=== PATIENT | male | born 1960 | race Caucasian/White ===

== ENCOUNTER 2017-05-10 18:45 | Inpatient (IN) | payer SELFPAY ==
[2017-05-10 19:21] LABS: #Basophils 0.1 thou/uL (0.0-0.2); #Eosinphils 0.3 thou/uL (0.0-0.7); #Lymphocytes 2.5 thou/uL (1.20-3.40); #Monocytes 0.5 thou/uL (0.11-0.59); %Basophils 0.6 % (0.0-1.0); %Eosinophils 3.4 % (0.0-10.0); %Lymphocytes 26.7 % (21.0-51.0); %Monocytes 4.9 % (0.0-10.0); Hematocrit 44.6 % (42.0-52.0); Mean Platelet Volume 7.6 fL (7.4-10.4); Red Blood Cell (RBC) Count 4.69 mill/uL (4.70-6.10); White Blood Cell (WBC) Count 9.3 thou/uL (4.8-10.8)
--- NOTE | 2017-05-10 19:37 | CT ---
CT BRAIN WITHOUT CONTRAST: Date: 05/10/17 HISTORY: Injury. Syncopal episode. COMPARISON: None available. FINDINGS: There is abnormal hypodensity within the subcortical white matter of the posterior right frontal lobe extending to the temporal lobe with faint peripheral hyperdensity. This hyperdensity does not appear to be hemorrhage. No midline shift or mass effect. Ventricular size and extra-axial CSF spaces are normal. Paranasal sinuses and mastoids are clear. IMPRESSION: Subcortical hypodensity posterior right frontal lobe and right temporal lobe with relatively maintain ed cortex. This is concerning for possible underlying mass and this may represent vasogenic edema. Fo llow-up MRI with and without contrast may be beneficial. A late acute or early subacute infarction is also a possibility. Emergency room physician noted of findings via telephone at 1925 hours. CODE CR. POS: KURT
--- NOTE | 2017-05-10 19:41 | CT ---
CERVICAL SPINE CT WITHOUT CONTRAST: Date: 05/10/17 HISTORY: Altered mental status. COMPARISON: None. FINDINGS: The occipital condyles are intact. Odontoid process is intact. Mandibular condyles are well seated wi thin the mandibular fossa. There is no acute fracture or malalignment of the cervical spine. There is moderate degenerative disc space height loss at C5-6 and C6-7. There is a moderate right C2-C5 facet arthropathy. Mild calcific plaque of the carotid bulbs bilaterally. Calcific scar left lung apex. IMPRESSION: Mild degenerative changes. No acute fracture or malalignment. POS: JENNIFER
[2017-05-10 19:44] LABS: ALT (SGPT) 37 U/L (8-55); AST (SGOT) 26 U/L (5-34); Alkaline Phosphatase 74 U/L (40-150); Anion Gap 16 mmol/L (10-20); BUN (Urea Nitrogen) 15 mg/dL (8.4-25.7); Bilirubin, Total 0.6 mg/dL (0.2-1.2); Calc. Creatinine Clearance 0 mL/min (70-130); Calcium 9.5 mg/dL (7.8-10.44); Carbon Dioxide 24 mmol/L (22-29); Chloride 105 mmol/L (98-107); Estimated GFR-MDRD 60; Globulin 2.9 g/dL (2.4-3.5); Protein, Total 7.2 g/dL (6.0-8.3)
[2017-05-10 19:47] LABS: Troponin I 0.011 ng/mL (< 0.028)
[2017-05-10] MEDS ORDERED: Acetaminophen 500 MG TAB ONE (21:26)
[2017-05-11 00:34] LABS: Troponin I 0.013 ng/mL (< 0.028)
[2017-05-11 01:47] VITALS: BMI 32.3
--- NOTE | 2017-05-11 01:52 | PDOC.EVN ---
Event Note - Event Note Event Note: [id number] 1. syncope 2. r/o seizure 3. headache plann: see orders
[2017-05-11] MEDS ORDERED: Ondansetron HCl/PF 4 MG/2 ML Vial IVP PRN (02:17)
[2017-05-11] MEDS ORDERED: Acetaminophen 325 MG TAB PO PRN (02:17)
[2017-05-11] MEDS ORDERED: Ondansetron ODT 4 MG TAB SL PRN (02:17)
[2017-05-11] MEDS ORDERED: Meclizine HCl 25 MG TAB PO PRN (02:38)
[2017-05-11] MEDS ORDERED: Metoclopramide HCl 10 MG/2 ML VIAL IVP PRN (02:44)
[2017-05-11] MEDS: Sodium Chloride 0.9% 1,000 ML IV SCH ×2 (02:58→15:29)
[2017-05-11] MEDS ORDERED: ISOVUE-370 76%-LOCM 1 ML ONE (07:56)
[2017-05-11] MEDS ORDERED: Gadobenate Dimeglumine 529 MG/1 ML (20ML VIAL) ONE (07:56)
[2017-05-11] MEDS ORDERED: Lorazepam 1 MG TAB PO SCH (08:15)
[2017-05-11] MEDS: Heparin 5,000 UNITS/ML VIAL SC SCH ×2 (08:53→21:10)
[2017-05-11] MEDS: Aspirin 81 mg Enteric Coated Tablet PO SCH (08:53)
--- NOTE | 2017-05-11 09:16 | CON ---
DATE OF CONSULTATION: 05/11/2017 HISTORY OF PRESENT ILLNESS: The patient is a 57-year-old male, otherwise healthy, who presented to the emergency department last night following a syncopal episode. The patient does not remember the event. 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 Event was not witnessed. The patient was complaining of some dizziness and nausea in the emergency department. He was evaluated with CT noncontrast of the head, which is notable for hyperdensity in the right frontal and temporal regions. Radiology felt that this could represent underlying mass with vasogenic edema or possible subacute infarction. The Neurosurgery Service was consulted for further evaluation. Patient was admitted to the medicine service and seen the patient at the bedside. At this time, he has no current complaints. He has been resting comfortably according to his family rest by evening. REVIEW OF SYSTEMS: Per HPI. PAST MEDICAL HISTORY: The patient is an otherwise healthy, denies any known medical problems. PAST SURGICAL HISTORY: No prior surgical history. SOCIAL HISTORY: The patient does not smoke, drink or use any drugs. ALLERGIES: Patient has no known drug allergies. MEDICATIONS: The patient is not taking any current medications. PHYSICAL EXAMINATION: GENERAL: No acute distress. GCS 15. HEAD: Normocephalic, atraumatic. EYES: PERRLA. Extraocular movements intact. Sclerae are white. ENT: OP is clear. Oral mucosa is pink, intact and moist. NECK: Nontender to palpation. Free active range of motion. No meningismus or nuchal rigidity. CARDIOVASCULAR: Regular rate and rhythm. LUNGS: Breathing comfortably. Symmetric chest expansion. MUSCULOSKELETAL: Good muscle tone in bilateral upper and lower extremities. Free active range of motion of all extremities, 5/5 strength throughout. NEUROLOGIC: Alert and oriented x4. No focal weakness. Normal cranial nerve exam. No limb ataxia. Negative Salazar's, negative clonus. ASSESSMENT: 1. Syncope. 2. Hyperdensity found on head CT, questionable for underlying brain mass or subacute infarction. PLAN: The patient has been admitted to the medicine service for further evaluation of syncopal episode. We will recommend MRI with and without contrast for further evaluation of possible underlying mass. We will follow up results. I have discussed this plan with Dr. Melendez. IVIS
--- NOTE | 2017-05-11 09:21 | ULT ---
ULTRASOUND WITH DOPPLER DUPLEX CAROTID: Date: 05/11/17 HISTORY: 57-year-old male with syncope. TECHNIQUE: Baldwin scale, color flow, and spectral analysis of major arteries of the neck. FINDINGS: Tiny focal plaque at origin of right internal carotid. Minimal plaque at left distal common carotid. Highest peak systolic velocities in the internal carotid arteries are 70 cm/s on the right and 85 cm/ s on the left. ICA/CCA ratios are 0.8 on the right and 0.7 on the left. Vertebral artery flow is ante grade bilaterally. IMPRESSION: 1. Minimal atherosclerotic plaque. 2. No hemodynamically significant stenosis. POS: KURT
--- NOTE | 2017-05-11 12:00 | HP ---
DATE OF ADMISSION: 05/10/2017 CHIEF COMPLAINT: Syncope. HISTORY OF PRESENT ILLNESS: The patient is a 57-year-old male with no significant past medical history, came to the ER because of the cough. 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 He does not remember what happened. Patient was found unresponsive on the floor , so patient was brought to the hospital. Patient said he did regain consciousness at the field. Once he regain consciousness he was confused, complains of some headache. Headache is mild in intensity all over. Complains of nausea, denies any vomiting. Patient thinks he did had seizure at work. Does not remember exactly what happened. Denies any chest pain. Denies any palpations. Denies any cough, denies sputum production. PAST MEDICAL HISTORY: None. PAST SURGICAL HISTORY: Tonsillectomy. SOCIAL HISTORY: Denies smoking, denies alcohol, illicit drugs. ALLERGIES: No known drug allergies. REVIEW OF SYSTEMS: Constitutional: Denies any fever, denies any chills. Eyes : Denies any vision problems. Ears: Denies any hearing loss. Neck: Denies any neck pain. Cardiovascular System: Denies any chest pain. Respiratory System: Denies any cough, denies sputum production. Gastrointestinal: Denies any nausea, denies any vomiting. Musculoskeletal: Denies any joint deformities. Integument: Denies any rashes. Genitourinary: Denies any dysuria. All other review of systems are reviewed and are negative. PHYSICAL EXAMINATION: CONSTITUTIONAL/VITAL SIGNS: At the time of H&P performed, blood pressure is 105 /60, afebrile, pulse ox 97%. GENERAL: This patient appears comfortable. HEENT: Pupils are equal, round, and anterior nares patent. Nose normal. Ears normal. Teeth intact. Tongue is moist. NECK: Supple, no JVD. CARDIOVASCULAR: S1, S2 present. Regular rate and rhythm, no murmurs, no rubs, no gallops. INTEGUMENTARY: No obvious rashes seen. CRANIAL NERVES SYSTEM: Cranial nerves intact. Follows commands. Strength intact, sensory intact. PSYCHIATRIC: Mood is appropriate at this time. LABORATORY DATA: At the time of H&P performed white count 9.3, hemoglobin 15.2 , platelet count is 259. Sodium 141, potassium 3.8, chloride 105, CO2 is 24, BUN of 15, creatinine 1.23. CT head positive for subcortical hypodensity in the right frontal and right temporal lobe seen, concerning for possible underlying mass and present vasogenic edema, cannot rule out subacute infarction. CT cervical spine, no acute fracture seen. ASSESSMENT AND PLAN: The patient is 57-year-old male: 1. Syncope, rule out seizures. Plan to check EEG. Plan to consult neurology. Plan to check MRI brain and we will follow the patient. 2. Rule out seizure. Plan to do EEG. Plan to place the patient on seizure precautions. 3. Headache. PRN pain medications. 4. Nausea. PRN antiemetics. Case was discussed in detail with the patient. Patient is FULL CODE. MTDD
--- NOTE | 2017-05-11 14:36 | PDOC.PN ---
- Subjective Encounter Start Date: 05/11/17 Encounter Start Time: 14:36 Subjective: no complaint at all - Objective MAR Reviewed: Yes Vital Signs & Weight: Vital Signs (12 hours) Temp Pulse Pulse Pulse Resp BP BP 05/11/17 11:20 98.2 F 70 18 05/11/17 10:51 67 70 111/63 122/63 05/11/17 08:45 98.5 F 69 18 05/11/17 03:17 98.6 F 72 14 BP Pulse Ox 05/11/17 11:20 122/63 95 05/11/17 10:51 05/11/17 08:45 104/63 94 L 05/11/17 03:17 107/60 97 Weight Weight 220 lb 4.8 oz I&O: 05/10/17 05/11/17 05/12/17 06:59 06:59 06:59 Intake Total 730 Output Total 1 Balance 729 Result Diagrams: 05/10/17 19:08 05/10/17 19:08 Phys Exam - Physical Examination Neck: no JVD Respiratory: clear to auscultation bilateral Cardiovascular: RRR, no significant murmur Gastrointestinal: soft, non-tender Musculoskeletal: no edema Dx/Plan (1) Syncope and collapse Code(s): R55 - SYNCOPE AND COLLAPSE Status: Acute - Plan ABn CT brain, awaiting MRI brain * .
--- NOTE | 2017-05-11 16:31 | EEG ---
Referring Physician: Celestina BENOIT EEG # [id number] TEST TYPE: ROUTINE PORTABLE INPATIENT REPORT: AN EEG USING THE INTERNATIONAL TEN-TWENTY SYSTEM OF ELECTRODE PLACEMENT WAS PERFORMED. The waking background is a well modulated 9 Hz alpha frequency. The patient became drowsy, but no sleep was seen. Photic stimulation was unremarkable. No epileptiform features were present. IMPRESSION: THIS IS A NORMAL AWAKE AND DROWSY EEG. Cad Detailer: OPAL Inventory And Pricing Associate: CHANDA.CATHY LANGSTON
--- NOTE | 2017-05-11 18:34 | PDOC.EVN ---
Event Note - Event Note Event Note: MRI dictated repeport suggests metestaic lesion more likely than primary mass lesion
--- NOTE | 2017-05-11 19:06 | MRI ---
BRAIN MRI WITH AND WITHOUT CONTRAST: Date: 05/11/17 HISTORY: Possible intracranial metastasis. Vasogenic edema reported on recent brain CT. COMPARISON: None. TECHNIQUE: Brain MRI is performed with and without intravenous Gadolinium administration. Multisequential, multi planar imaging is performed. CORRELATION: Noncontrast head CT dated 05/10/17. FINDINGS: No hemorrhage on the coronal gradient echo sequence. There is symmetric signal intensity of the hippo campi. No MR evidence of mesiotemporal sclerosis. There is T2 and FLAIR hyperintensity involving the right frontal and temporal subcortical white matte r, compatible with vasogenic edema. There is minimal associated enhancement at the level of vasogenic edema. On the anterior pole of the right temporal lobe, there is a cortically based 6.0 mm focus of enhancement. There may be a subtle area of cortical enhancement just posterior and inferior to the mo re nodular enhancement. Additional areas of parenchymal enhancement are not appreciated in the right cerebrum. No abnormal enhancement in the left cerebrum. No associated vasogenic edema in the remainde r of the cerebrum. Cerebellum is unremarkable. Central arterial flow-voids are maintained. Absent restricted diffusion. There is mucosal disease of the paranasal sinuses. Adequate mastoid air cell aeration. Metallic susceptibility artifact in the midline frontal scalp. IMPRESSION: Vasogenic edema involving the right frontotemporal lobe. Just inferior to this area of vasogenic kip a, there appears to be cortical enhancement. There is minimal enhancement of the level of vasogenic e tanisha. The distribution favors a probable metastatic, rather than primary, tumor. POS: PPP
[2017-05-11] MEDS ORDERED: Atorvastatin Calcium 40 MG TAB PO SCH (21:00)
[2017-05-11] MEDS: levETIRAcetam 500 MG TAB PO SCH (21:10)
--- NOTE | 2017-05-11 22:59 | CT ---
CT CHEST WITH CONTRAST CT ABDOMEN WITH CONTRAST CT PELVIS WITH CONTRAST 05/11/17 HISTORY: Brain metastases. COMPARISON: None. FINDINGS: There is pleural scarring along the right lower lobe with some round atelectasis. No suspicious pulmo nary nodule in the chest. No spiculated pulmonary mass. No adenopathy of the chest. Thyroid is unremarkable. No abnormal enhancing hepatic mass. Spleen is unremarkable. The liver and stomach are all unremarkable. Gallbladder is unremarkable. There is mild inflammatory within the proximal small bowel mesentery and increased number of lymph no nilay. Small retroperitoneal lymph nodes. Appendix is visualized and is normal. Mild diverticular disease sigmoid colon without active inflamma tion. Mild degenerative disease of the right hip. No suspicious osteolytic or osteoblastic lesions of the s [place]. No fracture. IMPRESSION: 1. No primary malignancy within the chest, abdomen or pelvis is appreciated. 2. No acute abnormality in the chest, abdomen or pelvis. 3. Likely chronic low grade edema of the proximal small bowel mesentery with mild increase numbe r of lymph nodes. Differential includes chronic sclerosing mesenteritis and treated lymphoma. 4. Neurosurgical consultation for brain biopsy may be necessary. POS: KURT
--- NOTE | 2017-05-11 23:14 | CON ---
DATE OF CONSULTATION: 05/11/2017 IMPRESSION: Focal seizure secondary to right frontoparietal subcortical lesion. PLAN: 1. Keppra 500 mg b.i.d. 2. MRI of the brain. 3. Possible need for neurosurgical consultation for biopsy. Mr. Sampson is a 57-year-old man with no significant past history. 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 He then started experiencing s ome twitching movements on the left side of the body. He lost consciousness for an indeterminate per iod of time. He awoke and he was on the ground underneath the trailer. He was brought to the [facility] for evaluation. He had a CT scan of the brain done yesterday which showed an area of hypointensit y involving subcortical region and the right frontoparietal region. Carotid Doppler did not show any significant stenosis. His EEG did not show any focal seizure discharges, has never had a seizure in the past. He denies a history of any type of malignancy. PAST HISTORY: Otherwise, negative. ALLERGIES: None. MEDICATIONS: None other than prior to admission. FAMILY HISTORY: Noncontributory. REVIEW OF SYSTEMS: Minimal complaints of headache, but no prior focal neurologic symptoms. PHYSICAL EXAMINATION: VITAL SIGNS: Blood pressure 124/60, pulse 72, respirations 20, temperature 98.9. HEENT: Pupils equal and reactive. Conjunctivae clear. Oropharynx clear. EXTREMITIES: No cyanosis. NEUROLOGIC: He is alert and appropriate. His speech is fluent and clear. His exam is nonfocal. No abnormal movements were seen. LABORATORY STUDIES: Unremarkable CBC and serum chemistries other than glucose 168. His total choles terol was 262. SUMMARY: This gentleman presented with a focal seizure and has a focal lesion in the right frontopar ietal region that represents either a somewhat atypical prior stroke or a subcortical mass with perip heral edema around it. I would start him on anticonvulsant therapy and proceed with further workup.
[2017-05-12 03:56] VITALS: BP 94/58
[2017-05-12 07:46] VITALS: TEMP 98.7
--- NOTE | 2017-05-12 08:21 | PDOC.PN ---
- Subjective Encounter Start Date: 05/12/17 Encounter Start Time: 08:19 - Objective MAR Reviewed: Yes Vital Signs & Weight: Vital Signs (12 hours) Temp Pulse Resp BP Pulse Ox 05/12/17 08:07 98.7 F 57 L 18 05/12/17 07:20 98.7 F 57 L 18 97 05/12/17 03:47 98.4 F 54 L 16 94/58 L 97 05/11/17 23:35 98.3 F 65 16 97/53 L 95 Weight Weight 215 lb 11.2 oz I&O: 05/11/17 05/12/17 05/13/17 06:59 06:59 06:59 Intake Total 730 950 Output Total 1 Balance 729 950 Result Diagrams: 05/10/17 19:08 05/10/17 19:08 Radiology Reviewed by me: Yes (CT thorax/ abd- no evidence for primary source of brain mass) Phys Exam - Physical Examination Constitutional: NAD Neck: no JVD Respiratory: clear to auscultation bilateral Cardiovascular: RRR, no significant murmur Gastrointestinal: soft, non-tender, positive bowel sounds Musculoskeletal: edema present Dx/Plan (1) Syncope and collapse Code(s): R55 - SYNCOPE AND COLLAPSE Status: Acute (2) Brain mass Code(s): G93.9 - DISORDER OF BRAIN, UNSPECIFIED Status: Acute (3) Seizure disorder Code(s): G40.909 - EPILEPSY, UNSP, NOT INTRACTABLE, WITHOUT STATUS EPILEPTICUS Status: Acute - Plan cont anticonvulsant tx, discuss Bx/ CAMARILLO with NS * .
[2017-05-12] MEDS: levETIRAcetam 500 MG TAB PO SCH (08:42)
[2017-05-12] MEDS: Aspirin 81 mg Enteric Coated Tablet PO SCH (08:47)
[2017-05-12] MEDS: Heparin 5,000 UNITS/ML VIAL SC SCH (08:47)
--- NOTE | 2017-05-12 09:17 | DIS ---
TRANSFER OF CARE NOTE City call admission for Stephanie. DISCHARGE DISPOSITION: Home. DATE OF ADMISSION: 05/11/2017 DATE OF DISCHARGE: 05/12/2017 FINAL DIAGNOSES: 1. Brain mass. 2. Seizure disorder. 3. Syncope and collapse. 4. Dyslipidemia. CODE STATUS: Full. PENDING AT THE TIME OF DISCHARGE: The patient will have surgery next week per Dr. Melendez. ALLERGIES: None. CONSULTATIONS: Dr. Dashawn Melendez, Neurosurgery. DISCHARGE MEDICATIONS: Keppra 500 mg p.o. b.i.d. HOSPITAL COURSE: The patient admitted to the hospital through [facility] with syncope and collapse. Neurological exam was unremarkable. CBC was unremarkable. Comp metabolic profile owed only a blood sugar of 168, cholesterol 262, LDL 187, HDL 56. PSA 0.98. The initial CAT scan owed a hyperdense right frontal temporal lobe lesion. Carotid ultrasound is unremarkable. Brain MRI showed an enhancing mass lesion right frontal temporal lobe. CT with contrast of the chest, abdomen , and pelvis was unrevealing. The patient was seen in consultation by Dr. Dashawn Melendez, consult ation with him this morning. The patient is being discharged as he has been on aspirin, to follow up with Dr. Melendez next week for excisional biopsy of mass. I have discussed with the patient no [place], no aspirin, no Motrin and Tylenol or any medications like that. Prescription for Keppra has be en written.
--- NOTE | 2017-06-15 12:32 | EKG ---
Test Reason : SYCOPE Blood Pressure : / mmHG Vent. Rate : 079 BPM Atrial Rate : 079 BPM P-R Int : 158 ms QRS Dur : 098 ms QT Int : 416 ms P-R-T Axes : 041 006 018 degrees QTc Int : 477 ms Normal sinus rhythm Normal ECG No ST elevation/AK Confirmed by MATTHEW GOODWIN ([id number]), fashion editor BRIAN ACOSTA ([id number]) on 06/15/2017 12:32:18 PM Referred By: Confirmed By:MATTHEW GOODWIN
== END 2017-05-12 11:32 | disposition home or self-care (01) | DRG 101 ==
LOC: ERS 18:45 → 2SE 23:45 → OBSVTOIN 23:45 → 2SE 05-11 20:50
PROVIDERS: ADMIT Internal Medicine; ATTEND Internal Medicine
PROC: B030ZZZ Magnetic Resonance Imaging (MRI) of Brain (ICD-10-PCS; principal; 2017-05-10)
DX: G40.909 Epilepsy, unspecified, not intractable, without status epilepticus (principal); E78.5 Hyperlipidemia, unspecified; G93.9 Disorder of brain, unspecified
CPT/HCPCS: 36415; 70450; 70553; 71260; 72125; 74177; 80053; 80061; 82553; 84153; 84484; 85025; 93005; 93306; 93880; 95816; A4216; A9579; G8978-GP-CK; G8979-GP-CK; G8980-GP-CK; G8987-GO-CH; G8988-GO-CH; G8989-GO-CH; G8996-GN-CH; G8997-GN-CH; G8998-GN-CH; J1644; J2405; J2765

== ENCOUNTER 2017-05-19 06:04 | Inpatient (IN) | payer OTHER ==
[2017-05-18 11:25] VITALS: BMI 29.5
[2017-05-19] MEDS ORDERED: Sodium Chloride 0.9% 10 ML ONE (06:24)
[2017-05-19] MEDS ORDERED: Bacitracin Zinc Ointment 30 gm TUBE ONE (06:25)
[2017-05-19] MEDS ORDERED: CEFAZOLIN/Water 2 GM/20 ML SYRINGE ONE (06:31)
[2017-05-19] MEDS ORDERED: Famotidine/PF 20 mg/2ml Vial ONE (06:59)
[2017-05-19] MEDS ORDERED: Midazolam HCl 2 mg/2 ml Vial ONE (06:59)
[2017-05-19] MEDS ORDERED: Albumin 5% 0 ML ONE (07:12)
[2017-05-19] MEDS ORDERED: Phenylephrine 10 MG/NS 250 ML 0 ML ONE (07:12)
[2017-05-19] MEDS ORDERED: Propofol 1,000 MG/100 ML VIAL IV ONE ×2 (07:12→08:57)
[2017-05-19] MEDS ORDERED: Lidocaine 2% Jelly 5 ML TUBE ONE (07:24)
[2017-05-19] MEDS ORDERED: Fentanyl 100 MCG/2 ML VIAL ONE ×3 (08:03→11:02)
[2017-05-19] MEDS ORDERED: Promethazine HCl 25 MG/ML VIAL IM PRN ×3 (10:39→17:05)
[2017-05-19] MEDS ORDERED: Promethazine HCl 25 MG/ML VIAL SLOW IVP PRN (10:39)
[2017-05-19] MEDS ORDERED: Ondansetron HCl/PF 4 MG/2 ML Vial IVP PRN ×2 (10:39→11:20)
[2017-05-19] MEDS ORDERED: hydrALAZINE 20 MG/ML VIAL SLOW IVP PRN ×2 (11:12→17:05)
[2017-05-19] MEDS ORDERED: Mag-Al 1200 mg/1200 mg/30 ML UDCUP PO PRN ×2 (11:12→17:05)
[2017-05-19] MEDS ORDERED: Labetalol HCl 100 MG/20 ML VIAL SLOW IVP PRN ×2 (11:12→17:05)
[2017-05-19] MEDS ORDERED: diphenhydrAMINE 50 MG/ML VIAL IVP PRN ×2 (11:12→17:05)
[2017-05-19] MEDS ORDERED: Docusate 100 MG CAP PO PRN ×2 (11:12→17:05)
[2017-05-19] MEDS ORDERED: Promethazine HCl 25 MG SUPP PR PRN ×2 (11:12→17:05)
[2017-05-19] MEDS ORDERED: Sodium Chloride 0.9% 1,000 ML IV SCH (11:15)
--- NOTE | 2017-05-19 11:22 | OP ---
SURGEON: Dashawn Melendez M.D. FURNITURE REPRODUCER: Frandy. PROCEDURE: Stereotactic intracranial navigation, right frontal craniotomy, resection of tumor, opera ting microscope. PROCEDURE IN DETAIL: The patient was brought into the operating room and intubated. He was position ed supine in the elma head headholder with the head turned to the left exposing the right frontotem poral region. We registered the stereotactic navigation device and used to plan the incision, cranio aline. We performed a standard right frontotemporal incision and craniotomy. We reflected the dura a nteriorly. Using the intracranial navigation, we identified an area of slightly discolored brain in the inferior right frontal lobe in the expected location of the abnormality. This did not seem to be discrete mass but rather an area of discolored brain. We circumferentially dissected this and remov ed in several specimens. We then removed additional tissue using coagulation and suction until back to normal looking brain. A complete resection of abnormal tissue was achieved. The brain was then e xtensively irrigated, and hemostasis was secured. The dura was reapproximated with 4-0 silk suture a nd Duragen artificial dura, and the skull was reapproximated with titanium microplates and screws, an d the scalp was closed in anatomic layers.
[2017-05-19] MEDS ORDERED: diphenhydrAMINE 50 MG CAP PO PRN ×2 (11:34→17:05)
[2017-05-19] MEDS ORDERED: Morphine PF 1 MG/ML SYR IVP PRN (11:37)
[2017-05-19] MEDS: Morphine 4 MG/ML VIAL SLOW IVP PRN ×2 (13:04→17:07)
[2017-05-19] MEDS ORDERED: Lidocaine 1% PF 5 ML VIAL ONE (15:05)
[2017-05-19] MEDS ORDERED: Naloxone HCl 0.4 mg/ml Vial ONE (15:05)
[2017-05-19] MEDS ORDERED: Glycopyrrolate 0.2 MG/ML 5 ML SYRINGE ONE (15:05)
[2017-05-19] MEDS ORDERED: Dexamethasone 20 MG/5 ML VIAL ONE (15:05)
[2017-05-19] MEDS ORDERED: Propofol 200 MG/20 ML VIAL ONE (15:05)
[2017-05-19] MEDS ORDERED: Ondansetron HCl/PF 4 MG/2 ML Vial ONE (15:05)
[2017-05-19] MEDS ORDERED: HYDROcodone/Acetaminophen 10/325 mg Tablet PO PRN ×2 (17:05)
[2017-05-19] MEDS ORDERED: Morphine 4 MG/ML VIAL SLOW IVP PRN ×2 (17:08→17:09)
[2017-05-19] MEDS ORDERED: Acetaminophen 650 MG Suppository PR PRN (17:13)
[2017-05-19] MEDS: Sodium Chloride 0.9% 1,000 ML IV SCH (19:22)
[2017-05-19] MEDS: Famotidine/PF 20 mg/2ml Vial SLOW IVP SCH (19:54)
[2017-05-19] MEDS: levETIRAcetam 500 MG TAB PO SCH (19:54)
[2017-05-19] MEDS ORDERED: Famotidine/PF 20 mg/2ml Vial IVPB SCH (21:00)
[2017-05-19] MEDS: CEFAZOLIN/Water 2 GM/20 ML SYRINGE SLOW IVP SCH (21:00)
[2017-05-19] MEDS ORDERED: levETIRAcetam 500 MG TAB PO SCH (21:00)
--- NOTE | 2017-05-19 22:58 | PDOC.PN ---
- Subjective Encounter Start Date: 05/19/17 Encounter Start Time: 22:56 Patient seen and examined. No new complaints. Consult for med mngt. No CP/SOB/ new focal deficits. - Objective MAR Reviewed: Yes Vital Signs & Weight: Vital Signs (12 hours) Temp Pulse Resp Pulse Ox 05/19/17 19:36 99.0 F 72 14 94 L 05/19/17 19:00 99.0 F 05/19/17 17:00 97.7 F 05/19/17 13:00 98.0 F 05/19/17 12:30 98.0 F 51 L 16 95 Weight Weight 200 lb Most Recent Monitor Data Heart Rate from ECG 83 NIBP 139/80 NIBP BP-Mean 109 Respiration from ECG 12 SpO2 93 I&O: 05/18/17 05/19/17 05/20/17 06:59 06:59 06:59 Intake Total 1037 Output Total 1290 Balance -253 EKG Reviewed by me: Yes (Tele SR) Phys Exam - Physical Examination Constitutional: NAD Respiratory: no wheezing, no rales, no rhonchi Cardiovascular: RRR, no rub Gastrointestinal: soft, non-tender, positive bowel sounds Musculoskeletal: no edema Neurological: non-focal, moves all 4 limbs Psychiatric: A&O x 3 Dx/Plan - Plan DVT proph w/SCDs IMPRESSION: 1. Seizure disorder - prob due to brain mass 2. Dyslipidemia 3. Brain mass - s/p surgery 4. CKD 2 PLAN: * Cont PO Keppra * Add PRN meds * Cont to monitor * AM labs * Seizure precautions. * Thank you for this consultation. Will follow Review of Systems - Review of Systems Constitutional: negative: Fever, Chills, Sweats, Weakness, Malaise Respiratory: negative: Cough, Dry, Shortness of Breath, Hemoptysis, SOB with Excertion, Pleuritic Pain, Sputum, Wheezing Cardiovascular: negative: Chest Pain, Palpitations, Orthopnea, Paroxysmal Noc. Dyspnea, Edema, Light Headedness Neurological: negative: Weakness, Numbness, Incoordination, Change in Speech, Confusion, Seizures - Medications/Allergies Allergies/Adverse Reactions: Allergies Allergy/AdvReac Type Severity Reaction Status Date / Time No Known Allergies Allergy Unverified 05/11/17 01:55 Medications: Current Medications Acetaminophen (Tylenol) 650 mg PO Q4H PRN PRN Reason: HEADACHE, FEVER > 101 OR PAIN Acetaminophen (Tylenol) 650 mg [place] Q4H PRN PRN Reason: Headache/Fever or Pain Hydrocodone Bitart/Acetaminophen ([place] 10/325) 1 tab PO Q4H PRN PRN Reason: Pain 4-6 Hydrocodone Bitart/Acetaminophen ([place] 10/325) 2 tab PO Q4H PRN PRN Reason: Pain 7-10 Al Hydroxide/Mg Hydroxide (Maalox) 30 ml PO Q6H PRN PRN Reason: Heartburn or Indigestion Cefazolin Sodium (Ancef) 2 gm SLOW IVP Q8HR [facility] Stop: 05/20/17 06:01 Last Admin: 05/19/17 21:00 Dose: 2 gm Diphenhydramine HCl (Benadryl) 50 mg PO HSPRN PRN PRN Reason: Itching & Insomnia Diphenhydramine HCl (Benadryl) 50 mg IVP Q6H PRN PRN Reason: Itching & Insomnia Docusate Sodium (Colace) 100 mg PO BIDPRN PRN PRN Reason: Constipation Famotidine (Pepcid) 20 mg SLOW IVP Q12HR [facility] Last Admin: 05/19/17 19:54 Dose: 20 mg Hydralazine HCl (Apresoline) 5 mg SLOW IVP Q15MIN PRN PRN Reason: FOR SBP > __160 Sodium Chloride (Normal Saline 0.9%) 1,000 mls @ 75 mls/hr IV .[id number] [facility] Last Admin: 05/19/17 19:22 Dose: Not Given Labetalol HCl (Normodyne) 10 mg SLOW IVP Q15MIN PRN PRN Reason: FOR SBP > __160 Levetiracetam (Keppra) 500 mg PO BID [facility] Last Admin: 05/19/17 19:54 Dose: 500 mg Morphine Sulfate (Morphine) 2 mg SLOW IVP Q1H PRN PRN Reason: .MODERATE BREAKTHROUGH PAIN Morphine Sulfate (Morphine) 4 mg SLOW IVP Q1H PRN PRN Reason: .MODERATE BREAKTHROUGH PAIN Promethazine HCl (Phenergan) 12.5 mg IM Q4H PRN PRN Reason: Nausea Promethazine HCl (Phenergan) 12.5 mg PO Q4H PRN PRN Reason: Nausea Last Admin: 05/19/17 21:48 Dose: 12.5 mg Promethazine HCl (Phenergan Suppository) 12.5 mg [place] Q4H PRN PRN Reason: Nausea
[2017-05-20] MEDS: Sodium Chloride 0.9% 1,000 ML IV SCH ×2 (01:44→22:48)
[2017-05-20 05:25] LABS: Anion Gap 13 mmol/L (10-20); BUN (Urea Nitrogen) 11 mg/dL (8.4-25.7); BUN/Creatinine Ratio 11.58; Calc. Creatinine Clearance 109 mL/min (70-130); Calcium 9.2 mg/dL (7.8-10.44); Carbon Dioxide 26 mmol/L (22-29); Chloride 103 mmol/L (98-107); Estimated GFR-MDRD 81; Magnesium 2.4 mg/dL (1.6-2.6); Phosphorus 2.9 mg/dL (2.3-4.7)
[2017-05-20 05:45] LABS: Band 5 % (5-11); Hematocrit 48.9 % (42.0-52.0); Mean Platelet Volume 8.2 fL (7.4-10.4); Neutrophil 82 % (42-75); Red Blood Cell (RBC) Count 5.13 mill/uL (4.70-6.10); White Blood Cell (WBC) Count 23.2 thou/uL (4.8-10.8)
[2017-05-20] MEDS: CEFAZOLIN/Water 2 GM/20 ML SYRINGE SLOW IVP SCH (05:59)
[2017-05-20] MEDS: Acetaminophen 325 MG TAB PO PRN ×2 (07:45→20:59)
[2017-05-20] MEDS: Famotidine/PF 20 mg/2ml Vial SLOW IVP SCH ×2 (07:45→20:38)
[2017-05-20] MEDS: levETIRAcetam 500 MG TAB PO SCH ×2 (07:46→20:38)
--- NOTE | 2017-05-20 17:47 | PDOC.PN ---
- Subjective Encounter Start Date: 05/20/17 Encounter Start Time: 09:00 Patient seen and examined. No new complaints. No overnight events - Objective MAR Reviewed: Yes Vital Signs & Weight: Vital Signs (12 hours) Temp Pulse Resp BP Pulse Ox 05/20/17 16:05 98.0 F 62 16 129/74 96 05/20/17 11:55 97.7 F 62 12 119/70 94 L 05/20/17 09:16 98.0 F 62 20 117/74 94 L 05/20/17 08:00 98.3 F 88 18 96 05/20/17 07:00 98.3 F Weight Weight 200 lb Most Recent Monitor Data Heart Rate from ECG 65 NIBP 105/50 NIBP BP-Mean 69 Respiration from ECG 17 SpO2 94 I&O: 05/19/17 05/20/17 05/21/17 06:59 06:59 06:59 Intake Total 2042 360 Output Total 3010 40 Balance -968 320 Result Diagrams: 05/20/17 04:00 05/20/17 04:00 Phys Exam - Physical Examination Constitutional: NAD Respiratory: no wheezing, no rhonchi Cardiovascular: RRR, no rub Gastrointestinal: soft, non-tender, positive bowel sounds Musculoskeletal: no edema Neurological: non-focal, moves all 4 limbs Psychiatric: A&O x 3 Dx/Plan - Plan DVT proph w/SCDs IMPRESSION: 1. Seizure disorder - prob due to brain mass - on Keppra 2. Dyslipidemia - counselled on dietary modification 3. Brain mass - s/p surgery 05/19 4. CKD 2 PLAN: * Cont PO Keppra * Cont to monitor * Seizure precautions. Review of Systems - Review of Systems Respiratory: negative: Cough, Dry, Shortness of Breath, Hemoptysis, SOB with Excertion, Pleuritic Pain, Sputum, Wheezing Cardiovascular: negative: Chest Pain, Palpitations, Orthopnea, Paroxysmal Noc. Dyspnea, Edema, Light Headedness Gastrointestinal: negative: Nausea, Vomiting, Abdominal Pain, Diarrhea, Constipation, Melena, Hematochezia - Medications/Allergies Allergies/Adverse Reactions: Allergies Allergy/AdvReac Type Severity Reaction Status Date / Time No Known Allergies Allergy Unverified 05/11/17 01:55 Medications: Current Medications Acetaminophen (Tylenol) 650 mg PO Q4H PRN PRN Reason: HEADACHE, FEVER > 101 OR PAIN Last Admin: 05/20/17 07:45 Dose: 650 mg Acetaminophen (Tylenol) 650 mg [place] Q4H PRN PRN Reason: Headache/Fever or Pain Hydrocodone Bitart/Acetaminophen ([place] 10/325) 1 tab PO Q4H PRN PRN Reason: Pain 4-6 Hydrocodone Bitart/Acetaminophen ([place] 10/325) 2 tab PO Q4H PRN PRN Reason: Pain 7-10 Al Hydroxide/Mg Hydroxide (Maalox) 30 ml PO Q6H PRN PRN Reason: Heartburn or Indigestion Diphenhydramine HCl (Benadryl) 50 mg PO HSPRN PRN PRN Reason: Itching & Insomnia Diphenhydramine HCl (Benadryl) 50 mg IVP Q6H PRN PRN Reason: Itching & Insomnia Docusate Sodium (Colace) 100 mg PO BIDPRN PRN PRN Reason: Constipation Famotidine (Pepcid) 20 mg SLOW IVP Q12HR [facility] Last Admin: 05/20/17 07:45 Dose: 20 mg Hydralazine HCl (Apresoline) 5 mg SLOW IVP Q15MIN PRN PRN Reason: FOR SBP > __160 Sodium Chloride (Normal Saline 0.9%) 1,000 mls @ 75 mls/hr IV .[id number] [facility] Last Admin: 05/20/17 01:44 Dose: 1,000 mls Labetalol HCl (Normodyne) 10 mg SLOW IVP Q15MIN PRN PRN Reason: FOR SBP > __160 Levetiracetam (Keppra) 500 mg PO BID [facility] Last Admin: 05/20/17 07:46 Dose: 500 mg Morphine Sulfate (Morphine) 2 mg SLOW IVP Q1H PRN PRN Reason: .MODERATE BREAKTHROUGH PAIN Morphine Sulfate (Morphine) 4 mg SLOW IVP Q1H PRN PRN Reason: .MODERATE BREAKTHROUGH PAIN Promethazine HCl (Phenergan) 12.5 mg IM Q4H PRN PRN Reason: Nausea Promethazine HCl (Phenergan) 12.5 mg PO Q4H PRN PRN Reason: Nausea Last Admin: 05/20/17 06:05 Dose: 12.5 mg Promethazine HCl (Phenergan Suppository) 12.5 mg [place] Q4H PRN PRN Reason: Nausea
[2017-05-21 07:42] VITALS: BP 121/80; TEMP 98.3
[2017-05-21] MEDS: Famotidine/PF 20 mg/2ml Vial SLOW IVP SCH (08:33)
[2017-05-21] MEDS: levETIRAcetam 500 MG TAB PO SCH (08:37)
--- NOTE | 2017-05-21 11:40 | DIS ---
The patient is a 57-year-old male who underwent right craniotomy for brain tumor. He is po stoperative day #2. There were no intraoperative complications. He has been doing well postoperativ martha with no complaints. The patient's pain is well controlled with regular Tylenol just on an as nee ded basis. He has been ambulatory throughout the department, was neurologically intact with no focal deficits. His incision was closed with marcelina. It is intact and dry. No drainage is appreciated. The patient is tolerating his diet well. He has been voiding appropriately. We will plan to dismi ss to home. The patient is to continue Keppra 500 mg b.i.d. daily. We will plan to follow up in 2 w eeks in the office. Specimen pathology is pending. I will follow the results. Please reach out to the Neurosurgery Service for additional questions or concerns.
== END 2017-05-21 10:27 | disposition home or self-care (01) | DRG 26 ==
LOC: SURG A 06:04 → CCU 12:41 → SURG A 05-20 08:50
PROVIDERS: ADMIT Neurological Surgery; ATTEND Neurological Surgery
PROC: 00B70ZZ Excision of Cerebral Hemisphere, Open Approach (ICD-10-PCS; principal; 2017-05-19)
DX: G93.9 Disorder of brain, unspecified (principal); C71.1 Malignant neoplasm of frontal lobe; E78.5 Hyperlipidemia, unspecified; G40.909 Epilepsy, unspecified, not intractable, without status epilepticus; N18.2 Chronic kidney disease, stage 2 (mild)
CPT/HCPCS: 36415; 80069; 83735; 85025; 88307; 88325; 88341; 88342; A4216; C1713; G8978-GP-CK; G8979-GP-CK; G8980-GP-CK; G8987-GO-CI; G8988-GO-CI; G8989-GO-CI; J0131; J0360; J1100; J1642; J2001; J2250; J2270; J2310; J2405; J2704; J3010; J3490; P9045; S0028

== ENCOUNTER 2017-08-27 09:31 | Emergency (ER) | payer OTHER, SELFPAY ==
[2017-08-27 10:49] LABS: #Eosinphils 0.1 thou/uL (0.0-0.7); #Lymphocytes 0.6 thou/uL (1.20-3.40); #Monocytes 0.3 thou/uL (0.11-0.59); #Neutrophils 3.1 thou/uL (1.40-6.50); %Basophils 0.3 % (0.0-1.0); %Eosinophils 3.4 % (0.0-10.0); %Neutrophils 73.2 % (42.0-75.0); Hemoglobin 15.3 g/dL (14.0-18.0); Mean Corpuscular HGB CONC 33.9 g/dL (32.0-36.0); Mean Corpuscular Hemoglobin 32.5 pg (27.0-31.0); Mean Corpuscular Volume 95.8 fl (80.0-94.0); Mean Platelet Volume 7.4 fL (7.4-10.4); Platelet Count 194 thou/uL (130-400); RBC Distribution Width 12.1 % (11.5-14.5); White Blood Cell (WBC) Count 4.2 thou/uL (4.8-10.8)
[2017-08-27] MEDS ORDERED: Valproate Sodium 500 MG in Sodium Chloride 0.9% 100 ML IVPB SCH (11:00)
[2017-08-27 11:01] LABS: ALT (SGPT) 37 U/L (8-55); AST (SGOT) 27 U/L (5-34); Albumin 4.3 g/dL (3.5-5.0); Alkaline Phosphatase 69 U/L (40-150); Anion Gap 11 mmol/L (10-20); BUN (Urea Nitrogen) 12 mg/dL (8.4-25.7); Bilirubin, Total 0.7 mg/dL (0.2-1.2); Calc. Creatinine Clearance 115 mL/min (70-130); Calcium 9.1 mg/dL (7.8-10.44); Carbon Dioxide 24 mmol/L (22-29); Chloride 109 mmol/L (98-107); Estimated GFR-MDRD 80; Globulin 2.9 g/dL (2.4-3.5); Glucose 93 mg/dL (70-105); Potassium 4.2 mmol/L (3.5-5.1); Protein, Total 7.2 g/dL (6.0-8.3); Sodium 140 mmol/L (136-145)
--- NOTE | 2017-08-27 11:32 | CT ---
CT HEAD WITHOUT CONTRAST: HISTORY: History of brain tumor. Seizures. COMPARISON: MRI brain with and without contrast, dated 05/11/2017. TECHNIQUE: Multiple axial tomograms obtained through the head without IV enhancement. FINDINGS: The comparison exam revealed vasogenic edema in the right frontal lobe cortex, peripherally, with an enhancing nodule at this site on post contrast study. On today's exam, there are postoperative changes involving the right frontal lobe, at the site of the previously noted enhancing mass. A craniotomy defect is seen. There is thickening of the dura at t his site, which is probably postoperative. There is no evidence of intracranial hemorrhage. There is some lucency at the operative site, consis tent with postoperative change. There is no evidence of edema by CT. IMPRESSION: No acute finding by CT. Postoperative changes are noted. MRI with and without contrast would be mor e sensitive for assessing recurrent neoplasm. POS: [facility]
== END 2017-08-27 12:29 | disposition home or self-care (01) ==
LOC: ERS 09:31
DX: R56.9 Unspecified convulsions (principal); Z85.841 Personal history of malignant neoplasm of brain; Z79.899 Other long term (current) drug therapy
CPT/HCPCS: 70450; 80053; 85025; 96365; J7050

== ENCOUNTER 2017-10-19 10:32 | Inpatient (IN) | payer SELFPAY ==
[2017-10-19 11:03] LABS: #Eosinphils 0.1 thou/uL (0.0-0.7); #Lymphocytes 1.1 thou/uL (1.20-3.40); #Monocytes 0.4 thou/uL (0.11-0.59); #Neutrophils 4.1 thou/uL (1.40-6.50); %Basophils 0.3 % (0.0-1.0); %Eosinophils 1.8 % (0.0-10.0); %Lymphocytes 19.4 % (21.0-51.0); %Monocytes 6.9 % (0.0-10.0); %Neutrophils 71.5 % (42.0-75.0); Hemoglobin 15.8 g/dL (14.0-18.0); Mean Corpuscular HGB CONC 34.5 g/dL (32.0-36.0); Mean Corpuscular Hemoglobin 32.5 pg (27.0-31.0); Mean Corpuscular Volume 94.4 fl (80.0-94.0); Mean Platelet Volume 7.4 fL (7.4-10.4); Platelet Count 208 thou/uL (130-400); RBC Distribution Width 11.4 % (11.5-14.5); Red Blood Cell (RBC) Count 4.87 mill/uL (4.70-6.10); White Blood Cell (WBC) Count 5.8 thou/uL (4.8-10.8)
[2017-10-19 11:09] LABS: Bicarbonate (HCO3v) 30.1 mmol/L (1.0-85.0); CO2 Tension (PvCO2) 54.1 mmHg (41.0-51.0); Calcium, Ionized 1.17 mmol/L (1.12-1.32); Hemoglobin - Calc 16.5 g/dL (12.0-18.0); Lactate 1.65 mmol/L (0.50-2.20); O2 Tension (PvO2) 30.6 mmHg (35.0-45.0); Potassium 4.1 mmol/L (3.4-4.7); T. Carbon Dioxide 31.8 mmol/L (1.0-85.0); pH (Venous) 7.354 (7.35-7.45); vO2 Saturation-calc 54.3 % (94-98)
[2017-10-19 11:09] LABS: PTT 30.3 SEC (22.9-36.1); Prothrombin Time 13.3 SEC (12.0-14.7)
[2017-10-19 11:14] LABS: ALT (SGPT) 31 U/L (8-55); AST (SGOT) 24 U/L (5-34); Albumin 4.3 g/dL (3.5-5.0); Alkaline Phosphatase 73 U/L (40-150); Anion Gap 13 mmol/L (10-20); BUN (Urea Nitrogen) 15 mg/dL (8.4-25.7); Bilirubin, Total 0.7 mg/dL (0.2-1.2); Calc. Creatinine Clearance 0 mL/min (70-130); Calcium 9.3 mg/dL (7.8-10.44); Carbon Dioxide 25 mmol/L (22-29); Chloride 105 mmol/L (98-107); Estimated GFR-MDRD 71; Globulin 3.1 g/dL (2.4-3.5); Glucose 102 mg/dL (70-105); Potassium 4.2 mmol/L (3.5-5.1); Protein, Total 7.4 g/dL (6.0-8.3); Sodium 139 mmol/L (136-145)
[2017-10-19 11:18] LABS: CKMB 0.4 ng/mL (0-6.6); Troponin I Less than 0.010 ng/mL (< 0.028)
[2017-10-19] MEDS ORDERED: Dexamethasone 10 MG/ML VIAL ONE (11:23)
--- NOTE | 2017-10-19 11:33 | CT ---
CT OF THE BRAIN WITHOUT CONTRAST: COMPARISON: 08/27/17. HISTORY: History of cancer. The patient has a history of left-sided arm drifting and facial drooping. FINDINGS: There is a hypodense region in the right frontal and parietal lobes. This likely represents vasogeni c edema surrounding a mass which is difficult to visualize but likely measures 3.8 cm in size. There is no evidence of hydrocephalus, intracranial hemorrhage, or extraaxial fluid collection. Postsurgical changes are seen in the right calvarium. The paranasal sinuses and mastoid air cells ar e well aerated. IMPRESSION: There is a new hypodense region in the right frontal lobe which likely represents a mass with surroun ding vasogenic edema rather than an acute stroke. An MRI of the brain without and with contrast is r ecommended for further evaluation. Dr. Chawla notified of the findings at 10:49 p.m. on 10/19/17. CODE CR POS: [facility]
--- NOTE | 2017-10-19 12:53 | CON ---
DATE OF CONSULTATION: 10/19/2017 ATTENDING PHYSICIAN: Dr. Dashawn Melendez. HISTORY OF PRESENT ILLNESS: The patient is a 57-year-old male known to us for right-sided craniotomy with tumor resection in 05/2017 who presents to the emergency department for left-sided fa cial droop, left upper extremity weakness and slurred speech. Following his surgery back in May , pathology returned as astrocytoma. The patient was following with Oncology and receiving radiation as well as chemotherapy until this August. The patient reports he took a brief break from chemothera py after a dental infection and had plan to restart chemotherapy in the near future. He was seen by us 08/[address] head which did not show any recurrence at that time. He was doing well until when he reports that he began having acute onset slurred speech, left upper extremity weaknes s as well, plus left-sided facial droop. This prompted his visit to the ER today. In addition, the patient reports he has had 3 seizures in the last 24 hours. He is currently taking Keppra 500 mg b.i .d., is managed by his neurologist, Dr. Mock. He reports he has had intermittent seizures since . His CT shows a likely recurrence of underlying lesion in the right frontal temporal region with surrounding vasogenic edema. There was some mass effect. No midline shift is appreciated at th is time. PAST MEDICAL HISTORY: Astrocytoma status post right craniotomy, currently undergoing chemotherapy an d radiation treatment; seizures. PAST SURGICAL HISTORY: Tonsillectomy, right craniotomy 05/2017. SOCIAL HISTORY: The patient does not smoke, drink or use any drugs. ALLERGIES: Patient has no known drug allergies. REVIEW OF SYSTEMS: Per HPI. PHYSICAL EXAMINATION: CONSTITUTIONAL: The patient is awake, alert, no acute distress. HEAD: There is a left-sided facial droop is appreciated. EYES Pupils equal and reactive to light. Extraocular movements intact. ENT: Oral mucosa is pink, intact and moist. He has a thick speech. NECK: Nontender to palpation. Free active range of motion, no meningismus or nuchal rigidity. CARDIOVASCULAR: Regular rate and rhythm. LUNGS: The patient is breathing comfortably. Symmetric chest expansion. No evidence of dyspnea. MUSCULOSKELETAL: Good muscle tone bilateral upper and lower extremities. There is slight weakness i n the left upper extremity corrections officer. There is no drift appreciated. No weakness in the other extremitie s. NEUROLOGIC: Left side facial droop, thick speech, left upper extremity weakness. ASSESSMENT AND PLAN: This is a 57-year-old male known to us for astrocytoma with previous craniotomy in 05/2017, currently undergoing chemotherapy and radiation, although he is on a brief break with ch emotherapy at this time seems healing from dental surgery. He has new onset left-sided weakness and facial droop and speech changes with a CT which shows a concern for recurrence of lesion in the right frontotemporal region. He has been given 10 mg IV Decadron in the emergency department and we will continue this for q.6 hours. I have also added an H2 nany. We will plan to get further evaluatio n of this lesion with an MRI of the brain with and without contrast. I discuss this plan with Dr. Fr almaguer who is in agreement. The patient will be admitted primarily to the medicine service and we wi ll continue to assess regarding this lesion in any other way.
--- NOTE | 2017-10-19 13:00 | MRI ---
BRAIN MRI WITH AND WITHOUT CONTRAST: HISTORY: Left-sided weakness, that started 2 or 3 days ago. History of brain tumor with resection. COMPARISON: 05/11/17. TECHNIQUE: Brain MRI is performed with and without intravenous Gadolinium administration. Multisequential, mult iplanar imaging is performed. FINDINGS: No acute hemorrhage on the axial gradient echo sequence. There is sulcal effacement and mass effect upon the right frontal and temporal lobes. There is mass effect and compression of the right lateral ventricle. No significant midline shift. There is T2 and FLAIR hyperintensity. No restricted diff usion. On the postcontrast images, there is an easily enhancing focus measuring 4.0 cm mediolateral x 5.2 cm anterior posterior x 4.5 cm craniocaudal. Additional areas of nodular enhancement are noted , peripheral to the aforementioned region. There is also enhancement of the overlying dura. Dural e nhancement may be due to treatment. There is evidence of likely chronic subdural blood along the rig ht frontal and temporal convexities at the level of previous craniotomy defect. No abnormal enhancem ent in the left cerebrum or cerebellum. Comparison made with prior imaging demonstrates the large lesion of enhancement to have developed sin ce the prior examination. Previously, there was a focus of enhancement along the right temporal pole . There is evidence of paranasal sinus mucosal thickening. IMPRESSION: Extensive heterogeneous enhancement involving the right frontotemporal region compatible with a tumor recurrence. Small satellite lesions appear to be present. There is associated mass effect and sulc al effacement. No significant midline shift. POS: [facility]
[2017-10-19] MEDS ORDERED: HYDROcodone/Acetaminophen 10/325 mg Tablet PO PRN (13:18)
[2017-10-19] MEDS ORDERED: Chloraseptic Spray 180 ml Bottle PO PRN (13:18)
[2017-10-19] MEDS ORDERED: Loperamide HCl 2 MG CAP PO PRN (13:18)
[2017-10-19] MEDS ORDERED: Milk Of Magnesia 30 ML UDCUP PO PRN (13:18)
[2017-10-19] MEDS ORDERED: Acetaminophen 325 MG TAB PO PRN (13:18)
[2017-10-19] MEDS ORDERED: Loratadine 10 MG TAB PO PRN (13:18)
[2017-10-19] MEDS ORDERED: Sodium Chloride 0.65% Nasal 44 ML BOT EA NARE PRN (13:18)
[2017-10-19] MEDS ORDERED: Mag-Al 1200 mg/1200 mg/30 ML UDCUP PO PRN (13:18)
[2017-10-19] MEDS ORDERED: Bisacodyl 10 MG SUPP PR PRN (13:18)
[2017-10-19] MEDS ORDERED: Diabetic Tussin 200 MG/10 ML UDCUP PO PRN (13:18)
[2017-10-19] MEDS ORDERED: Senokot 8.6 MG TAB PO PRN (13:18)
[2017-10-19] MEDS ORDERED: Ondansetron ODT 4 MG TAB PO PRN (13:18)
[2017-10-19] MEDS ORDERED: Artificial Tears 18 DROP/0.9 ML EA EYE PRN (13:18)
[2017-10-19] MEDS ORDERED: hydrALAZINE 20 MG/ML VIAL SLOW IVP PRN (13:18)
[2017-10-19] MEDS ORDERED: Eucerin (Mineral Oil/Petrolatum,White) 30 gm Jar TOP PRN (13:18)
[2017-10-19] MEDS ORDERED: Ondansetron HCl/PF 4 MG/2 ML Vial IVP PRN (13:18)
[2017-10-19] MEDS ORDERED: Zolpidem Tartrate 5 MG TAB PO PRN (13:18)
--- NOTE | 2017-10-19 13:35 | HP ---
PRIMARY CARE PHYSICIAN: [facility] call admission. REASON FOR ADMISSION: Left upper extremity weakness and slurred speech (stroke- like symptoms. HISTORY OF PRESENT ILLNESS: A 57-year-old male who has a previous history of astrocytoma required right-sided craniotomy who presented to emergency room with left upper extremity weakness and slurred speech. This patient had tumor resection with a right-sided craniotomy and subsequently pathology report was consistent with astrocytoma. The patient was receiving radiation and chemotherapy up until this August. The patient had a chemotherapy break for his recent dental infection and there was plan to restart chemotherapy in the near future. The patient saw neurosurgeon back in August 2016. At that time, there was no recurrence. The patient's symptoms started yesterday with slurred speech and left upper extremity weakness. He is right handed, but he was not able to hold anything on the left upper extremity and he also had a seizure- type of activity at home. The patient had previously seizure and he was kept on Keppra, which he was taking regularly and followed by Dr. Franco Mock. He denies any headache. He denies any nausea or vomiting. He denies any motor weakness in the lower extremity. He denies any diplopia or blurred vision. He denies any fever, chills, UTI symptoms. He denies any constipation, diarrhea, abdominal pain. REVIEW OF SYSTEMS: The following complete review of systems was negative, unless otherwise mentioned in the HPI or below: Constitutional: Weight loss or gain, ability to conduct usual activities. Skin: Rash, itching. Eyes: Double vision, pain. ENT/Mouth: Nose bleeding, neck stiffness, pain, tenderness. Cardiovascular: Palpitations, dyspnea on exertion, orthopnea. Respiratory: Shortness of breath, wheezing, cough, hemoptysis, fever or night sweats. Gastrointestinal: Poor appetite, abdominal pain, heartburn, nausea, vomiting, constipation, or diarrhea. Genitourinary: Urgency, frequency, dysuria, nocturia. Musculoskeletal: Pain, swelling. Neurologic/Psychiatric: Anxiety, depression. Allergy/Immunologic: Skin rash, bleeding tendency. Please see my HPI for pertinent positive and negative. All other review of systems reviewed and negative except as mentioned in the HPI. PAST MEDICAL HISTORY: History of astrocytoma required a craniotomy. Subsequently, the patient received chemotherapy and radiation therapy, seizure disorder secondary to astrocytoma. PAST SURGICAL HISTORY: Tonsillectomy, right craniotomy in 05/2017. PAST PSYCHIATRIC HISTORY: Reviewed and negative. SOCIAL HISTORY: Patient is single. He has one daughter. 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 He denies any tobacco, alcohol or illicit drug abuse. ALLERGIES: No known drug allergy. FAMILY HISTORY: No strong family history of premature coronary artery disease, stroke or cancer. CURRENT HOME MEDICATIONS: Keppra 500 mg p.o. b.i.d. EMERGENCY COURSE: patient is given decadron 10 mg one time PHYSICAL EXAMINATION: VITAL SIGNS: Currently, blood pressure 133/84, pulse 61, respiratory rate 18, temperature 97.5, saturation 95% on room air, weight 90.7 kilograms. GENERAL: The patient is currently alert, awake, no obvious acute distress. HEENT: Head; normocephalic, atraumatic. Eyes; pupils round, reactive to light. Extraocular muscle intact. ENT: Oropharynx within normal limits. Moist mucous membranes, no oral lesion, no pharyngeal erythema, no exudate. NECK: Supple, no JVD, no thyromegaly, no carotid bruit, no jugular venous distention. LUNGS: Clear to auscultation without any rhonchi or rales. CARDIAC: S1, S2 regular. No murmur, no gallop, no rub. ABDOMEN: Soft, bowel sounds present, nontender, nondistended. No organomegaly , no mass, no suprapubic tenderness. BACK: Unremarkable, no CVA tenderness. EXTREMITIES: Upper extremity passive movement of all joints are normal. Lower extremities: No edema. Good peripheral pulsation. SKIN: No skin rash. HEMATOLOGIC: No lymphadenopathy. PSYCHIATRIC: Normal affect. NEUROLOGIC: Patient does have slurred speech. Patient does have left upper extremity weakness. Patient does have pronator drip in left upper extremity. Lower extremity within normal limits. Reflexes bilaterally symmetrical. No cerebellar sign. Plantar bilateral flexor. PSYCHIATRIC: Normal affect. HEMATOLOGIC: No lymphadenopathy. SIGNIFICANT LABS: CT brain showing new mets with vasogenic edema on the right side, compression on the third ventricle 1 mm deviation to the right. MRI brain showed new hypodense region in the right frontal lobe. MRI brain showing extensive heterogenous enhancement involving the right frontotemporal region compatible with tumor recurrence associated mass effect, no midline shift on the MRI. CBC: WBC 5.8, hemoglobin 15.8, platelet 208. INR 1.08. VBG; pH 7.35, CO2 54.1, O2 30.6, bicarbonate 30.1. BMP: Sodium 144, potassium 4.1, chloride 105 , carbon dioxide 25, BUN 15, creatinine 1.07, glucose 102, calcium 9.3. LFTs: AST 24, ALT 31, alkaline phosphatase 73, albumin 4.3. Cardiac enzymes negative. ASSESSMENT AND PLAN: 1. Slurred speech and left upper extremity weakness, likely related with a tumor recurrence. This patient has previous history of astrocytoma that required craniotomy and subsequently he had chemoradiation therapy. At this point, CT brain and MRI brain report consistent with tumor recurrence. Neurosurgery already evaluated this patient in the emergency room. We will continue with the Decadron 10 mg IV 1 time dose and then every 6 hours for vasogenic edema. We will also continue Keppra 500 mg p.o. b.i.d. We will consult Neurosurgery and further plan will defer to them. Oncology team will be consulted as well. 2. Seizure disorder. This patient had a seizure problem today. We will continue Keppra 500 mg p.o. b.i.d. Seizure precaution will be exhibited while in hospital. 3. Deep venous thrombosis prophylaxis. Only sequential compression device boots, no Lovenox because of a brain mass recurrence as well as he may need a brain surgery. 4. Gastrointestinal prophylaxis, Pepcid 20 mg p.o. b.i.d. 5. Code status: The patient is FULL CODE. The patient is making his decision by himself, but the patient's daughter is also surrogate decision maker. Disposition plan based on clinical course and Neurosurgery recommendation. Plan of care discussed with the patient in detail. MTDD
[2017-10-19] MEDS ORDERED: Gadobenate Dimeglumine 529 MG/1 ML (20ML VIAL) ONE (15:06)
[2017-10-19] MEDS: Dexamethasone 4 mg/ml Vial SLOW IVP SCH ×3 (16:30→23:48)
--- NOTE | 2017-10-19 18:07 | CON ---
DATE OF CONSULTATION: 10/19/2017 CONSULTATION AND HISTORY AND PHYSICAL REASON FOR CONSULTATION: Mr. Sampson is a 57-year-old gentleman known to me who has possible recurren ce of his brain tumor in the right temporal area. HISTORY OF PRESENT ILLNESS: Mr. Sampson is known to me. 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 This was IDH1 and IDH2 negative. He was treated with chemoradiotherapy with his radiation completed on 08/13/2017. He tolerated this chemora diotherapy well. He was to resume maintenance Temodar. A little more than a week ago, he had some t eeth extracted and therefore his maintenance Temodar was delayed. He does have a history of seizures from his brain tumor. Beginning yesterday and worse this morning, he experienced a seizure episode. This was associated with jaw numbness and jaw shaking. He also had weakness in his left upper extr emity. He was brought to the emergency room for workup and evaluation. He did have an MRI of the br ain, which showed an enhancing focus measuring 4.0 x 5.2 x 4.5 cm. There is also a concern for some possible satellite lesions. There was surrounding vasogenic edema. His seizures have been controlle d and he has been initiated on Decadron. I am seeing him today to discuss his options for treatment. He denies any headaches at the present time. A week or two ago, he was doing well and feeling well. He has no nausea or vomiting. He voices no other complaints. PAST MEDICAL HISTORY: 1. Anaplastic astrocytoma as mentioned above. 2. Status post tonsillectomy. MEDICATIONS: Keppra and dexamethasone. ALLERGIES: No known medical allergies. SOCIAL HISTORY: He previously smoked cigarettes including at times up to 3 packs per day. He has no t used cigarettes or tobacco products in 2002. He did previously drink on a daily basis. 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 He lives in [place], [place] by himself. His daughter is with him in the room today. FAMILY HISTORY: His mother is still living at age 74 with diabetes. His father in his early 50 s from cirrhosis. There is no other family history of malignancy. REVIEW OF SYSTEMS: Twelve system review of systems is otherwise negative. PHYSICAL EXAMINATION: VITAL SIGNS: His height is 5 feet 9 inches, his weight is 211 pounds. Blood pressure is 133/84, pul se 61, respirations are 18, temperature is 97.5, O2 saturation was 95%. CONSTITUTIONAL: He is alert and oriented and in no apparent distress. His speech is slightly slurre d. Karnofsky performance status is an 80%. EYES: Pupils equal, round and reactive to light. Extraocular movements are intact. ENT: Oral cavity and oropharynx normal without lesion or erythema. Palate elevates symmetrically. Gingiva is intact. NECK: Supple without cervical or supraclavicular adenopathy. No thyromegaly. Larynx midline. LUNGS: Breathing nonlabored. Clear to auscultation and percussion. HEART: Regular rate and rhythm without murmur. No lower extremity edema. BACK: No tenderness on fist percussion of his spine. LYMPHATIC: No axillary or inguinal adenopathy. ABDOMEN: Soft, nontender, nondistended without mass or hepatosplenomegaly. Liver percussed to margarito l size. Bowel sounds present. NEUROLOGIC: Cranial nerves II-XII grossly intact. Motor strength is 5/5 in right upper extremity an d both lower extremities in all muscle groups tested. 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 Reflexes are diminished, but symmetrical. RADIOLOGIC: MRI of the brain was personally reviewed. Again, this shows a contrast enhancing lesion in the right temporal lobe measuring at least 5.2 cm. There are possible satellite lesions just adj acent to this. There was surrounding vasogenic edema. No other lesion was identified. CT scan of t he head on 08/27/2017 showed only postoperative changes. LABORATORY DATA: CBC revealed a white blood cell count of 5800 with a hemoglobin of 15.8, hematocrit of 46.0, platelet count of 208,000. Chemistry group revealed normal electrolytes. Creatinine is 1. 07. GFR was 71. ASSESSMENT: Mr. Sampson is a 57-year-old gentleman with a previous history of a grade III anaplastic astrocytoma who is status post what was felt to be a gross total resection followed by postoperative chemoradiation. His radiation was completed about 2 months ago. He was to begin his maintenance Tem odar when he was admitted for this recurrent seizure. He does have his previous history of having hi s teeth extracted a little more than a week ago. The MRI findings are consistent either with disease recurrence versus pseudoprogression versus abscess since his teeth were recently extracted. I think abscess is unlikely as he does not have fever or other systemic signs or illness. Thus, I think thi s is most likely either recurrent tumor versus pseudoprogression. PLAN: Unfortunately, you cannot distinguish on the MRI or by symptoms between pseudoprogression vers us actual tumor progression/recurrence. As mentioned previously, this could be either situation. T he rapidity of these findings make one concern for progression and also the fact that he was felt to have had a gross total resection. However, his tumor was a more aggressive brain tumor and certainly true progression is also a concern. Really, the only thing that can be done would be to place him o n dexamethasone as has been done and manage his seizures and repeat an MRI in 3-4 weeks to see if he has any improvement. If he has marked improvement, then this would be more consistent with pseudopro gression. If it is actual tumor recurrence, then his options are quite limited. Really his only opt ion will be to treat him with chemotherapy, likely with Temodar. Thus, I think it is best that he go es on and starts his maintenance Temodar while we are trying to evaluate whether this is pseudoprogre ssion versus actual tumor progression. If he does have actual tumor progression, then he is not a ca ndidate for additional radiation therapy given how quickly he has had a recurrence from his previous radiation. He may be a candidate for surgery, but I will defer that to the neurosurgeons. It should be noted that I also do not think this is radiation necrosis as that would be unlikely to manifest i tself this soon. Thus, I think his best option is to place him on dexamethasone and repeat an MRI in 3-4 weeks. In the interim, he can continue his maintenance Temodar. Thank you for this interesting consultation.
[2017-10-19 18:12] VITALS: BMI 30.7
--- NOTE | 2017-10-19 19:28 | CON ---
DATE OF CONSULTATION: 10/19/2017 REASON FOR CONSULTATION: Astrocytoma. HISTORY OF PRESENT ILLNESS: Mr. Sampson is a pleasant 57-year-old male, who completed chemoradiation after craniotomy for tumor resection for astrocytoma. His radiation was completed in mid-August. He was to begin maintenance Temodar 5 days every 28 days cycle, but had to have dental extraction first, which was performed on 10/11/2017. Yesterday morning, he had a seizure with a facial droop and left upper extremity numbness and weakness. He has had seizures in the past diagnosis, but has had none while on Keppra. He presented to the emergency room for evaluation, had a brain CT and MRI. The MRI showed extensive heterogeneous enhancement of the right frontotemporal region compatible with tumor recurrence. There was associated mass effect. There were some small satellite lesions in the radiat ion field. He was admitted and started on IV steroids. Neurosurgery has seen the patient. He denie s any headaches, no blurred vision, no neuromuscular changes except for the acute onset of seizure ye ster morning. PAST MEDICAL HISTORY: Astrocytoma, status post resection and chemoradiation with Temodar. PAST SURGICAL HISTORY: 1. Right craniotomy in 05/2017. 2. Tonsillectomy. 3. Recent teeth extraction. ALLERGIES: No known drug allergies. HOME MEDICATIONS: Keppra 1500 mg p.o. b.i.d. FAMILY HISTORY: No history of malignancy. SOCIAL HISTORY: , has 5 children, lives alone. He is a former smoker. No alcohol or illici t drug use. REVIEW OF SYSTEMS: Twelve-point review of systems is negative except for noted in HPI. PHYSICAL EXAMINATION: VITAL SIGNS: Temperature is 97.5, pulse is 61, respiratory rate 18, blood pressure is 133/84. GENERAL: Well-developed, well-nourished male, in no acute distress. HEENT: Normocephalic, atraumatic. He has a healed scar from the craniotomy. Eyes: Pupils are equa l and reactive to light. Mouth has evidence of tooth extraction, but no signs of erythema or drainag e. NECK: Supple. CARDIOVASCULAR: Regular rate and rhythm. LUNGS: Clear. ABDOMEN: Soft, nontender, bowel sounds are positive. EXTREMITIES: No clubbing, cyanosis or edema. SKIN: No rash. HEMATOLOGIC: No petechia or purpura. NEUROLOGIC: He has left-sided weakness in his arm, some left facial droop and lower extremity streng th is normal. PSYCHIATRIC: The patient is alert, oriented and appropriate. PERTINENT LABORATORY AND X-RAYS: Current WBCs 5.8, hemoglobin 15.8, hematocrit 46.0, platelet count is 208,000. Neutrophils are 72%, lymphocytes 21%. PT is 13.3, INR is 1.0, PTT is 30.3. Sodium is 1 39, potassium is 4.2, chloride is 105, CO2 is 25, BUN is 15, creatinine is 1.07, calcium is 9.3, tota l bilirubin is 0.7, AST is 24, ALT is 31, alkaline phosphatase is 73, serum total protein is 7.4, alb umin is 4.3, globulin is 3.1. Radiology per HPI. ASSESSMENT: History of astrocytoma with a new MRI changes worrisome for progression versus pseudopro gression. DISCUSSION: The patient has been started on steroids without resolution of neuro changes at this roxy e, although he has only received one dose. He has had recent seizure activity. eBrnadette is being aracelis ged by Neurology. We will have Dr. Byers see the patient for his opinion. I did discuss this with yazmin noland and it appears all these changes are in the radiation field and could be in fact pseudoprogression secondary to radiation would be unusual for astrocytoma to return so soon after treatment. He will need to resume his maintenance Temodar. We will discuss a time frame with Dr. Farris as the patient had his recent teeth extraction and follows up with a dentist in the next week. Regardless, the pat ient will need an MRI in the next several weeks. Thank you for the consult. We will follow him closely.
[2017-10-19] MEDS: levETIRAcetam 500 MG TAB PO SCH (19:40)
[2017-10-19] MEDS: Famotidine 40 MG/4 ML VIAL SLOW IVP SCH (20:46)
[2017-10-19] MEDS ORDERED: levETIRAcetam 500 MG TAB PO SCH (21:00)
[2017-10-20] MEDS: Dexamethasone 4 mg/ml Vial SLOW IVP SCH ×2 (05:37→11:26)
[2017-10-20] MEDS: Famotidine 40 MG/4 ML VIAL SLOW IVP SCH (08:07)
[2017-10-20] MEDS: levETIRAcetam 500 MG TAB PO SCH (08:08)
--- NOTE | 2017-10-20 09:14 | PRG ---
DATE OF SERVICE: 10/20/2017 The patient was seen and examined. I agree with Lida Mcdonald's note. Patient is a 57-year-old man, well known to me from a previous right-sided craniotomy and resection of an imaging abnormality that proved to be a high-grade astrocytoma. He was treated with postoperative radiation and Temodar and did well. He recently began to develop some new left-sided weakness, particularly in the hand as wel l as some mild dysarthria. This is modestly improved with Decadron. He continues to have occasional seizures and is on Keppra for this purpose. An MRI was performed revealing a significant contrast enhancement and edema in the right frontal and temporal lobes. The degree of mass effect is not terribly significant, although the imaging abnormal ity is recently extensive. IMPRESSION AND PLAN: Tumor progression versus radiation effect. It is impossible to tell with certa inty, although I do suspect it may be a combination of both. Any further efforts at surgery would ce rtainly create a permanent motor deficit and I do not recommend such at this time. I agree with the current plans for a gradual Decadron taper over the next 2-3 weeks, resumption of Temodar, and mobili zation to dismissal with a followup MRI scan in 4-6 weeks. I discussed this with the patient.
--- NOTE | 2017-10-20 10:00 | PDOC.PN ---
- Subjective Encounter Start Date: 10/20/17 Encounter Start Time: 07:00 -: old records requested/rev Patient seen and examined. No new complaints. No overnight events - Objective Resuscitation Status: Resuscitation Status FULL:Full Resuscitation MAR Reviewed: Yes Vital Signs & Weight: Vital Signs (12 hours) Temp Pulse Resp BP Pulse Ox 10/20/17 08:00 97.9 F 66 20 133/71 95 10/20/17 04:00 97.8 F 57 L 16 106/63 96 10/19/17 23:51 97.8 F 65 16 120/67 93 L Weight Weight 208 lb I&O: 10/19/17 10/20/17 10/21/17 06:59 06:59 06:59 Intake Total 1200 Balance 1200 Result Diagrams: 10/19/17 10:50 10/19/17 10:50 Phys Exam - Physical Examination Constitutional: NAD HEENT: PERRLA, moist MMs, sclera anicteric Neck: no JVD, supple Respiratory: no wheezing, no rales, no rhonchi Cardiovascular: RRR, no significant murmur, no rub Gastrointestinal: soft, non-tender, no distention, positive bowel sounds Musculoskeletal: no edema, pulses present Neurological: moves all 4 limbs Lymphatic: no nodes Psychiatric: normal affect, A&O x 3 Skin: no rash, normal turgor Dx/Plan (1) Anaplastic astrocytoma Code(s): C71.9 - MALIGNANT NEOPLASM OF BRAIN, UNSPECIFIED Status: Chronic (2) Obesity (BMI 30.0-34.9) Code(s): E66.9 - OBESITY, UNSPECIFIED Status: Chronic (3) Seizure disorder Code(s): G40.909 - EPILEPSY, UNSP, NOT INTRACTABLE, WITHOUT STATUS EPILEPTICUS Status: Chronic - Plan cont current plan of care * medication reviewed as below * symptomatic treatment * see my discharge summery. Review of Systems - Review of Systems ENT: negative: Ear Pain, Ear Discharge, Nose Pain, Nose Discharge, Nose Congestion, Mouth Pain, Mouth Swelling, Throat Pain, Throat Swelling, Other Respiratory: negative: Cough, Dry, Shortness of Breath, Hemoptysis, SOB with Excertion, Pleuritic Pain, Sputum, Wheezing Cardiovascular: negative: chest pain, palpitations, orthopnea, paroxysmal nocturnal dyspnea, edema, light headedness, other Gastrointestinal: negative: Nausea, Vomiting, Abdominal Pain, Diarrhea, Constipation, Melena, Hematochezia, Other Genitourinary: negative: Dysuria, Frequency, Incontinence, Hematuria, Retention , Other Musculoskeletal: negative: Neck Pain, Shoulder Pain, Arm Pain, Back Pain, Hand Pain, Leg Pain, Foot Pain, Other Skin: negative: Rash, Lesions, Ricardo, Bruising, Other - Medications/Allergies Allergies/Adverse Reactions: Allergies Allergy/AdvReac Type Severity Reaction Status Date / Time No Known Allergies Allergy Verified 10/19/17 15:57 Medications: Current Medications Acetaminophen (Tylenol) 650 mg PO Q4H PRN PRN Reason: Headache/Fever or Pain Hydrocodone Bitart/Acetaminophen ([place] 10/325) 1 tab PO Q4H PRN PRN Reason: Moderate Pain (4-6) Al Hydroxide/Mg Hydroxide (Maalox) 30 ml PO Q6H PRN PRN Reason: Heartburn or Indigestion Artificial Tears (Tears Naturale) 0 drop EA EYE PRN PRN PRN Reason: Dry Eyes Bisacodyl (Dulcolax) 10 mg MD Q24H PRN PRN Reason: Constipation Dexamethasone (Decadron) 4 mg SLOW IVP Q6HR [facility] Last Admin: 10/20/17 05:37 Dose: 4 mg Famotidine (Pepcid) 20 mg SLOW IVP BID [facility] Last Admin: 10/20/17 08:07 Dose: 20 mg Guaifenesin (Robitussin Sf) 200 mg PO Q4H PRN PRN Reason: Cough Hydralazine HCl (Apresoline) 10 mg SLOW IVP Q4H PRN PRN Reason: Systolic BP > 180 Levetiracetam (Keppra) 1,500 mg PO 08,1999 [facility] Last Admin: 10/20/17 08:08 Dose: 1,500 mg Loperamide HCl (Imodium) 2 mg PO PRN PRN PRN Reason: Diarrhea/Loose Stools Loratadine (Claritin) 10 mg PO DAILYPRN PRN PRN Reason: Sinus Symptoms Magnesium Hydroxide (Milk Of Magnesium) 30 ml PO DAILYPRN PRN PRN Reason: Constipation Mineral Oil/White Petrolatum (Eucerin Cream) 0 gm TOP BIDPRN PRN PRN Reason: Dry Skin Ondansetron HCl (Zofran Odt) 4 mg PO Q6H PRN PRN Reason: Nausea/Vomiting Ondansetron HCl (Zofran) 4 mg IVP Q6H PRN PRN Reason: Nausea/Vomiting Phenol (Chloraseptic [place] 180 Ml Bot) 0 ml PO PRN PRN PRN Reason: Sore Throat Senna (Senokot) 2 tab PO HSPRN PRN PRN Reason: Constipation Sodium Chloride (Ness Nasal [place] 0.65%) 0 ml EA NARE QIDPRN PRN PRN Reason: Nasal Congestion Sodium Chloride (Flush - Normal Saline) 10 ml IVF Q12HR [facility] Last Admin: 10/20/17 08:11 Dose: 10 ml Sodium Chloride (Flush - Normal Saline) 10 ml IVF PRN PRN PRN Reason: Saline Flush Last Admin: 10/20/17 05:37 Dose: 10 ml Zolpidem Tartrate (Ambien) 5 mg PO HSPRN PRN PRN Reason: Insomnia
--- NOTE | 2017-10-20 10:15 | DIS ---
PRIMARY CARE PHYSICIAN: [facility] call admission. DATE OF ADMISSION: 10/19/2017 DATE OF DISCHARGE: 10/20/2017 DISCHARGE DISPOSITION: Home. PRIMARY DISCHARGE DIAGNOSES: 1. Left upper extremity weakness. 2. Slurred speech. 3. Focal seizure likely due to recurrence of anaplastic astrocytoma versus radiation effect (progres carmelo). SECONDARY DISCHARGE DIAGNOSES: Obesity with BMI 30, seizure disorder secondary to anaplastic astrocy cynthia, history of anaplastic astrocytoma, required a craniotomy and subsequently chemoradiation therap y. PRIMARY PROCEDURE/OPERATION: None. RADIOLOGICAL INVESTIGATION: CT brain, suspected new brain tumor with vasogenic edema and a slight mi dline shift. MRI brain did not show any midline shift, but showed enhancement in frontoparietal zander on. SIGNIFICANT LABS: WBC 5.8, hemoglobin 15.8, platelet 208. INR 1.0. Sodium 139, potassium 4.2, BUN 15, creatinine 1.07. LFT normal. Cardiac enzymes negative. DISCHARGE MEDICATIONS: The patient will continue the following medications: Keppra 1500 mg p.o. b.i .d., Decadron 4 mg p.o. t.i.d. for 1 week, then b.i.d. for 1 week, then daily for 1 week, Pepcid 20 m g p.o. b.i.d. CONTRAINDICATIONS: None. CODE STATUS: FULL CODE. INPATIENT CONSULTANTS: ____ was consulted while in hospital. Oncology as well as Radiation Onco logy saw this patient. TEST RESULTS PENDING ON DISCHARGE: None. ALLERGIES: No known drug allergy. DISCHARGE PLAN: Post hospital, patient will follow up with Dr. Kofi Byers, Dr. Rubio Farris, Dr. Ron Melendez as instructed. HOSPITAL COURSE: The patient is a 57-year-old male who has a recent diagnosis of brain mass which re quired craniotomy and subsequently pathology report came back as anaplastic astrocytoma. After surge ry the patient underwent chemo and radiation therapy. The patient was also on hold chemotherapy dia use of his dental infection. The patient presented this time with some focal seizure on face as well as left upper extremity weakn ess and some slurred speech. When they did a CT brain in the emergency room which showed a new brain mass in that area, MRI brain also showed a suspected finding of tumor recurrence. Neurosurgery was consulted and they started on Decadron therapy. We continued his Keppra as well. W e consulted Radiation Oncology and Oncology and based on their assessment that because of radiation t herapy it is very difficult to exclude pseudo progression versus tumor recurrence. They are thinking that this patient will need repeat MRI in 2-3 weeks to see any change. If improvement, then it will be consistent with a pseudo progression and if it is getting worse, then the patient might have a re currence of tumor. In that case, the patient will not have any more treatment options. The patient will continue his maintenance chemotherapy. The patient will continue tapering doses of Decadron as above. The patient will continue his seizure medication. Patient is doing very well. He is hemodynamically stable. All his blood test is normal. All consul tants evaluated this patient and they are pretty much thinking that he will need repeat imaging in 3 weeks. Patient has also agreed with this plan. The patient is seen and examined at bedside today. VITAL SIGNS: Currently, temperature 97.9, pulse 66, respiratory rate 20, saturation 95% on room air, blood pressure 133/71, weight 208 pound. GENERAL: The patient is currently alert, awake, no acute distress. HEAD: Normocephalic, atraumatic. EYES: Pupils round, reactive to light. Extraocular muscle intact. ENT: Oropharynx within normal limits. Moist mucous membranes. No oral lesion, no pharyngeal erythe ma, no exudate. NECK: Supple, no JVD, no thyromegaly, no carotid bruit. LUNGS: Clear to auscultation without any rhonchi or rales. CARDIAC: S1, S2 regular without any murmur. ABDOMEN: Soft and benign. EXTREMITIES: No edema. NEUROLOGIC: The patient has mild left upper extremity weakness, but his speech has cleared and he do es not have any headache. He does not have any focal neurological deficit. He does not have any sei zure. All new medication prescription given to his pharmacy and the patient is medically stable for dischar ge today.
[2017-10-20 12:25] VITALS: BP 129/64; TEMP 97.4
== END 2017-10-20 14:49 | disposition home or self-care (01) | DRG 55 ==
LOC: ERS 10:32 → ONC 11:43
PROVIDERS: ADMIT Internal Medicine; ATTEND Internal Medicine
DX: C71.9 Malignant neoplasm of brain, unspecified (principal); G40.109 Localization-related (focal) (partial) symptomatic epilepsy and epileptic syndromes with simple partial seizures, not intractable, without status epilepticus; R53.1 Weakness; R47.81 Slurred speech; E66.9 Obesity, unspecified; Z68.30 Body mass index [BMI] 30.0-30.9, adult
CPT/HCPCS: 36416; 70450; 70553; 80053; 82330; 82553; 82803; 83605; 84484; 85025; 85610; 85730; 96374; A4216; A9579; J1100

== ENCOUNTER 2017-12-01 08:49 | Outpatient (CLI) | payer OTHER ==
--- NOTE | 2017-12-01 11:11 | MRI ---
PRE AND POST CONTRAST ENHANCED MRI IMAGES OF THE BRAIN: Date: 12-01-17 Comparison: 10-19-17 Technique: Multiplanar, multisequence pre and post contrast enhanced MRI images of the brain obtained . FINDINGS: Right frontal craniotomy change is seen. There is enhancing mass in the right frontoparietal region with 3D measurements of 4.2 x 4.9 x 4.8 cm . This mass has extensive vasogenic edema surrounding it. The edema extends into the right external c apsule and right internal capsule. The internal capsule component appears to have increased since the previous comparison exam from 10-19-17. No significant midline shift is seen. There is mass effect wit h some compression of the adjacent hemisphere. A small satellite lesion is seen inferiorly and medially extending into the right Sylvian fissure see n on image 13 on the coronal images. IMPRESSION: Overall enhancing component of the right frontoparietal brain neoplasm appears to be stable. There do es appear to be some increasing, especially medially positioned, vasogenic edema extending into the d eep white matter. POS: KURT
== END 2017-12-01 08:50 | disposition home or self-care (01) ==
LOC: MRI 08:49
PROVIDERS: ATTEND Radiology Radiation Oncology
DX: C71.1 Malignant neoplasm of frontal lobe (principal)
CPT/HCPCS: 70553